=== PATIENT | female | born 1990 | race Hispanic/Latino ===

== ENCOUNTER 2022-09-14 19:53 | Emergency (ER) | payer OTHER ==
--- OUTSIDE RECORDS SUMMARY | 2022-09-14 19:57 | XMS REPORT | Continuity of Care Document ---
:1990 Author Organization [facility] t Address [address] [place] [address] [place] [id number] Care Team Providers Name Role Phone CRISTOBAL WILSON Attending Clinician Unavailable JAKE KIM Attending Clinician Unavailable LAB59 Attending Clinician Unavailable DEMARIO SEBASTIAN Attending Clinician Unavailable LUAN_Polly Attending Clinician Unavailable LUAN_Polly Admitting Clinician Unavailable Payers Payer Name Policy Type Policy Number Effective Date Expiration Date Stella currie AETMARV MP CVS 9 [id number] 2022 00:00:00 SILVER $[id number] BASIC 94 Problems This patient has no known problems. Allergies, Adverse Reactions, Alerts This patient has no known allergies or adverse reactions. Social History Social Habit Start Date Stop Date Quantity Comments Source Gender identity Bhavya sorensen - External Sexual orientation Bhavya Bustamante - External History of Social 2022-09-04 2022-09-04 Bhavya Bustamante function 00:00:00 00:00:00 - External Tobacco use and 2022-09-04 2022-09-04 Smokeless tobacco Ke nidhi Bustamante exposure 00:00:00 00:00:00 non-user - External Alcohol intake 2022-09-04 2022-09-04 Lifetime Bhavya newby 00:00:00 00:00:00 non-drinker - External (finding) Sex Ass[birth year] At [birth year] Bhavya sorensen 00:00:00 00:00:00 - External Smoking Status Start Date Stop Date Source Never smoked tobacco Bhavya burgess - External Medications This patient has no known medications. Immunizations Ordered Immunization Filled Immunization Date Status Commen ts Source Name Name Tdap- (Boostrix, 2022-09-04 Completed Bhavya mathur Adacel) 00:00:00 - External Hepatitis B, Adult 2022-09-04 Completed Bhavya Bustamante (3 dose) 00:00:00 - External Vital Signs Vital Name Observation Time Observation Value Comments Source Systolic blood 2022-09-04 16:04:00 106 mm[Hg] Bhavya Bustamante - pressure External Diastolic blood 2022-09-04 16:04:00 68 mm[Hg] Kitty newsome Seybold - pressure External Heart rate 2022-09-04 16:04:00 80 /min Bhavya lorenzobold - External Body temperature 2022-09-04 16:04:00 36.67 Marilyn Saige lorenzo Seybold - External Respiratory rate 2022-09-04 16:04:00 16 /min Saige lorenzo Seybjenifer - External Body height 2022-09-04 16:04:00 160 cm Bhavya lorenzobostefan - External Body weight 2022-09-04 16:04:00 70.761 kg Bhavya lorenzobostefan - External BMI 2022-09-04 16:04:00 27.63 kg/m2 Bhavya lorenzobostefan - External Procedures Procedure Date / Time Performed Performing Clinician [facility] e US, upper extremity, 2022-08-17 00:00:00 [facility] nonvascular, limited Encounters Start End Encounter Admission Attending Care Care Encounter Source Date/Time Date/Time Type Type Clinicians Facility Department ID 2022-10-05 2022-10-05 Outpatient BHAVYA WILSON [id number] Bhavya 11:15:00 11:15:00 CRISTOBAL Seybol d 2022-10-05 2022-10-05 Outpatient INJ, JAKE BHAVYA SZYMANSKI [id number] Bhavya 10:45:00 10:45:00 Seybol d 2022-09-15 2022-09-15 Outpatient BHAVYA SZYMANSKI [id number] Bhavya 11:00:00 11:00:00 Seybol d 2022-09-15 2022-09-15 Outpatient BHAVYA SZYMANSKI [id number] Bhavya 10:15:00 10:15:00 Seybol d 2022-09-04 2022-09-04 Outpatient LAB59 BHAVYA SZYMANSKI [id number] Bhavya 12:00:00 12:00:00 Seybol d 2022-09-04 2022-09-04 Outpatient BHAVYA SEBASTIANSEY [id number] Bhavya 11:00:00 11:00:00 DEMARIO Seybol d 2022-08-21 2022-08-21 Outpatient [facility] [id number] Freddy 00:00:00 00:00:00 0717 Clinic 2022-08-19 2022-08-19 Outpatient [facility] [id number] Freddy 00:00:00 00:00:00 15 Clinic 2022-08-17 2022-08-17 Outpatient [facility] [id number] Freddy 00:00:00 00:00:00 712 Clinic 2022-08-17 2022-08-17 [facility] [place] - Freddy Freddy 00:00:00 00:00:00 [facility]ABRIEL OVERNIGHT STOCKER: The [address] [facility] [place] [address] , Ph. 2022-07-14 2022-07-14 Outpatient BHAVYA SEBASTIAN BHAVYA [id number] Bhavya 11:00:00 11:00:00 DEMARIO Soaresybol d Results This patient has no known results. Notes Date/Time Note Provider Source 2022-09-04 11:49:53-00:00 Formatting of this note migh t be different from the original. [facility] Tdap and Hep B administered and VIS given to pt. Pt. tolerated well. See immunization record for details. Florecita Cruz Electronically signed by Florecita Cruz at 08/07 11:50 AM CDT 2022-09-04 11:04:50-00:00 Formatting of this note is d ifferent from the original. [facility] Chief Complaint Patient presents with Physical 31 Year old // fasting Florecita Cruz Electronically signed by Florecita Cruz at 08/07 11:09 AM CDT
[2022-09-14] MEDS ORDERED: HYDROCODONE/APAP 7.5/325 MG TAB ONE (20:33)
--- NOTE | 2022-09-14 20:43 | RAD REPORT ---
EXAM DESCRIPTION: RAD - Foot Left 3 View - 09/14/2022 8:15 pm CLINICAL HISTORY: STINGRAY STING COMPARISON: No comparisons TECHNIQUE: Left foot, 3 views. FINDINGS: No fracture, dislocation or periosteal reaction. No air or foreign body in the soft tissues. Soft tissue swelling about the ankle. IMPRESSION: Soft tissue swelling as above, without evidence of acute osseus abnormality.
[2022-09-14 20:50] LABS: Specific Gravity 1.022 (1.005-1.030)
--- NOTE | 2022-09-14 21:17 | ER ---
Nurse's Notes [facility] Name: Fanny Miller Age: 31 yrs Sex: Female : 1990 Arrival Date: 09/14/2022 Time: 19:53 Bed 5 Private MD: Diagnosis: Toxic effect of contact with other venomous marine animals, undetermined, initial encounter;Pain in left foot Presentation: 09/14 20:02 Chief complaint: Patient states: "1 hr ago, I was in the ocean and felt something grab mb9 my foot. There is a little puncture wound and it feels like it's on fire. It hurts really bad". Coronavirus screen: Vaccine status: Patient reports receiving the 2nd dose of the covid vaccine. Ebola Screen: No symptoms or risks identified at this time. Initial Sepsis Screen: Does the patient meet any 2 criteria? No. Patient's initial sepsis screen is negative. Does the patient have a suspected source of infection? No. Patient's initial sepsis screen is negative. Risk Assessment: Do you want to hurt yourself or someone else? Patient reports no desire to harm self or others. Onset of symptoms was September 14, 2022. 20:02 Method Of Arrival: Wheelchair mb9 20:02 Acuity: CHAY 4 mb9 Triage Assessment: 20:03 General: Appears uncomfortable, Behavior is calm, cooperative. Pain: Complains of pain mb9 in left foot Pain currently is 10 out of 10 on a pain scale. Quality of pain is described as burning, throbbing, Pain began suddenly, Is continuous. Neuro: Beth Agitation-Sedation Scale (RASS): 0 - Alert and Calm Level of Consciousness is awake, alert, obeys commands, Oriented to person, place, time, situation, Appropriate for age. Respiratory: Airway is patent Respiratory effort is even, unlabored, Respiratory pattern is regular, symmetrical. Derm: Skin is pink, warm \\T\\ dry. Musculoskeletal: Range of motion: intact in all extremities. Historical: - Allergies: 20:03 No Known Allergies; mb9 - Home Meds: 20:03 None [Active]; mb9 - PMHx: 20:03 None; mb9 - PSHx: 20:03 None; mb9 - Immunization history:: Adult Immunizations up to date. - Social history:: Smoking status: Patient denies any tobacco usage or history of. Screenin:35 [facility] ED Fall Risk Assessment (Adult) History of falling in the last 3 months, ll3 including since admission No falls in past 3 months (0 pts) Confusion or Disorientation No (0 pts) Intoxicated or Sedated No (0 pts) Impaired Gait No (0 pts) Mobility Assist Device Used No (0 pt) Altered Elimination No (0 pt) Score/Fall Risk Level 0 - 2 = Low Risk Oriented to surroundings, Maintained a safe environment, Educated pt \\T\\ family on fall prevention, incl call for assistance when getting out of bed. Abuse screen: Denies threats or abuse. Denies injuries from another. Nutritional screening: No deficits noted. Tuberculosis screening: No symptoms or risk factors identified. Assessment: 20:30 General: Appears uncomfortable, Behavior is calm, cooperative. Pain: Complains of pain ll3 in left foot. Derm: Wound noted left foot. Vital Signs: 20:02 BP 130 / 86; Pulse 90; Resp 18; Temp 97.9; Pulse Ox 100% on R/A; Weight 69.4 kg; Height mb9 5 ft. 3 in. ; Pain 10/10; 21:37 BP 123 / 88; Pulse 88; Resp 17; Pulse Ox 100% on R/A; ll3 20:02 Body Mass Index 27.10 (69.40 kg, 160.02 cm) mb9 20:02 Pain Scale: Adult mb9 ED Course: 19:55 Patient arrived in ED. im 20:00 Johnny West PA is PHCP. cp 20:00 Tonny Hernadez MD is Attending Physician. cp 20:03 Triage completed. mb9 20:03 Arm band placed on. mb9 20:16 Foot Left 3 View In Process Unspecified. EDMS 20:38 Alfredo Hudson, DUNIA is Primary Nurse. rv 21:17 Johnny Faith MD is Attending Physician. cp 21:35 Patient has correct armband on for positive identification. Bed in low position. Call ll3 light in reach. Side rails up X 1. 21:36 No provider procedures requiring assistance completed. Patient did not have IV access ll3 during this emergency room visit. Administered Medications: 20:25 Drug: Hydrocodone-Acetaminophen PO (7.5 mg-325 mg) 1 tabs Route: PO; mb9 21:35 Follow up: Response: No adverse reaction; Marked relief of symptoms ll3 21:34 Drug: Ibuprofen PO 800 mg Route: PO; ll3 21:35 Follow up: Response: Medication administered at discharge. ll3 21:34 Drug: Doxycycline PO 100 mg Route: PO; ll3 21:35 Follow up: Response: Medication administered at discharge. ll3 Medication: 21:35 VIS not applicable for this client. ll3 Outcome: 21:17 Discharge ordered by . cp 21:36 Discharged to home via wheelchair, with significant other. ll3 21:36 Condition: stable 21:36 Discharge instructions given to patient, significant other, Instructed on discharge instructions, follow up and referral plans. medication usage, Demonstrated understanding of instructions, follow-up care, medications, Prescriptions given X 2. 21:37 Patient left the ED. ll3 Signatures: Dispatcher [employer] EDMS Johnny West PA PA cp Vicente, Ronaldo, RN RN rv Loubet, Lynsea, RN RN 3 Fatemeh Whitney RN RN mb9 Milady Theodore Corrections: (The following items were deleted from the chart) 20:03 20:03 PSHx: None; maylin mb9
--- NOTE | 2022-09-14 21:17 | EDPHYS ---
Physician Documentation [facility] Name: Fanny Miller Age: 31 yrs Sex: Female : 1990 Arrival Date: 09/14/2022 Time: 19:53 Bed 5 Private MD: ED Physician Johnny Faith HPI: 09/14 20:15 This 31 yrs old Female presents to ER via Wheelchair with complaints of possible cp jellyfish sting. 20:15 Patient is a 31-year-old female with no significant past medical history who presents cp emergency department with left foot pain. Patient [place] when she felt something grab her foot. Patient reports immediate pain and discomfort. Historical: - Allergies: 20:03 No Known Allergies; mb9 - Home Meds: 20:03 None [Active]; mb9 - PMHx: 20:03 None; mb9 - PSHx: 20:03 None; mb9 - Immunization history:: Adult Immunizations up to date. - Social history:: Smoking status: Patient denies any tobacco usage or history of. ROS: 20:20 Constitutional: Negative for body aches, chills, fever, poor PO intake. cp 20:20 Eyes: Negative for injury, pain, redness, and discharge. cp 20:20 ENT: Negative for drainage from ear(s), ear pain, sore throat, difficulty swallowing, difficulty handling secretions. 20:20 Cardiovascular: Negative for chest pain, palpitations. 20:20 Respiratory: Negative for cough, shortness of breath, wheezing. 20:20 Abdomen/GI: Negative for abdominal pain, nausea, vomiting, and diarrhea. 20:20 Back: Negative for pain at rest, pain with movement. 20:20 MS/extremity: Positive for pain, swelling, tenderness, of the left foot, Negative for decreased range of motion, deformity, paresthesias. 20:20 Neuro: Negative for altered mental status, dizziness, headache, weakness. 20:20 All other systems are negative. Exam: 20:25 Constitutional: The patient appears in no acute distress, alert, awake, non-toxic, well cp developed, well nourished, uncomfortable. 20:25 Head/Face: Normocephalic, atraumatic. cp 20:25 Chest/axilla: Inspection: normal. 20:25 Cardiovascular: Rate: normal, Rhythm: regular. 20:25 Respiratory: the patient does not display signs of respiratory distress, Respirations: normal, no use of accessory muscles, no retractions, labored breathing, is not present, Breath sounds: are clear throughout, no decreased breath sounds. 20:25 Abdomen/GI: Exam negative for discomfort, distension, guarding, Inspection: abdomen appears normal. 20:25 Musculoskeletal/extremity: Extremities: noted in the left foot: Examination of the left foot shows dorsum and lateral side of left foot with a well-circumscribed area of erythema, mild swelling and tenderness to palpation. No open wounds noted and no active bleeding. Vital Signs: 20:02 BP 130 / 86; Pulse 90; Resp 18; Temp 97.9; Pulse Ox 100% on R/A; Weight 69.4 kg; Height mb9 5 ft. 3 in. ; Pain 10/10; 21:37 BP 123 / 88; Pulse 88; Resp 17; Pulse Ox 100% on R/A; ll3 20:02 Body Mass Index 27.10 (69.40 kg, 160.02 cm) mb9 20:02 Pain Scale: Adult mb9 MDM: 20:00 Patient medically screened. 20:45 Differential diagnosis: fracture, puncture wound, toxin exposure. 21:16 Data reviewed: vital signs, nurses notes, radiologic studies, plain films. 21:16 I considered the following discharge prescriptions or medication management in the emergency department Medications were administered in the Emergency Department. See MAR. Counseling: I had a detailed discussion with the patient and/or guardian regarding: the historical points, exam findings, and any diagnostic results supporting the discharge/admit diagnosis, to return to the emergency department if symptoms worsen or persist or if there are any questions or concerns that arise at home. Response to treatment: the patient's symptoms have markedly improved after treatment, and as a result, I will discharge patient. 09/14 20:47 Order name: Test, Urine; Complete Time: 21:00 EDMS 09/14 20:09 Order name: Foot Left 3 View; Complete Time: 21:00 EDMS 09/14 21:00 Interpretation: Report reviewed. 09/14 20:04 Order name: Wound Care; Complete Time: 20:39 Administered Medications: 20:25 Drug: Hydrocodone-Acetaminophen PO (7.5 mg-325 mg) 1 tabs Route: PO; mb9 21:35 Follow up: Response: No adverse reaction; Marked relief of symptoms ll3 21:34 Drug: Ibuprofen PO 800 mg Route: PO; ll3 21:35 Follow up: Response: Medication administered at discharge. ll3 21:34 Drug: Doxycycline PO 100 mg Route: PO; ll3 21:35 Follow up: Response: Medication administered at discharge. ll3 Disposition Summary: 09/14/22 21:17 Discharge Ordered Location: Home cp Problem: new cp Symptoms: have improved cp Condition: Stable cp Diagnosis - Toxic effect of contact with other venomous marine animals, undetermined, initial cp encounter - Pain in left foot cp Followup: cp - With: Private Physician - When: 2 - 3 days - Reason: Worsening of condition Discharge Instructions: - Discharge Summary Sheet cp - Marine Life Injury cp - Foot Pain cp Forms: - Medication Reconciliation Form cp - Thank You Letter cp - Antibiotic Education cp - Prescription Opioid Use cp - Patient Portal Instructions cp Prescriptions: - Ibuprofen 800 mg Oral Tablet - take 1 tablet by ORAL route every 8 hours As needed take with food; 30 tablet; cp Refills: 0, Product Selection Permitted - Tramadol 50 mg Oral Tablet - take 1 tablet by ORAL route every 8 hours as needed; 12 tablet; Refills: 0, cp Product Selection Permitted Signatures: Dispatcher [employer] EDMS Johnny West PA PA cp Erin Lou, RN RN ll3 Fatemeh Whitney RN RN mb9 Corrections: (The following items were deleted from the chart) 20:03 20:03 PSHx: None; mb9 mb9 21:23 21:14 Crutches ordered. cp kl 21:37 21:28 Foot Left 3 View+RAD.RAD.BRZ ordered. EDMS EDMS
[2022-09-14] MEDS ORDERED: IBUPROFEN 400 MG TAB ONE (21:41)
[2022-09-14] MEDS ORDERED: DOXYCYCLINE 100 MG CAP PO ONE (21:41)
[2022-09-14 21:50] VITALS: TEMP 97.9; O2SAT 100
[2022-09-14 21:51] VITALS: BP 123/88
== END 2022-09-14 21:37 | disposition home or self-care (01) ==
LOC: ER 19:53
DX: T63.691A Toxic effect of contact with other venomous marine animals, accidental (unintentional), initial encounter (principal)
CPT/HCPCS: 81025; 99283